=== PATIENT | male | born 1950 | race Two or more races ===

== ENCOUNTER 2018-08-27 15:47 | Inpatient (IN) | payer BC, MEDICARE ==
[2018-08-27] VITALS (20 sets, daily range): BP systolic 87–128; BP diastolic 48–89
[~2018-08-27] VITALS: Ht 170.2 cm; Wt 72.4 kg
[~2018-08-27 15:47] MED LIST: ASPI81CH43 GT; LEVO50TA7 OR; SIMV20TA90 OR
[2018-08-27] MEDS ORDERED: LIDOCAINE 2%HCL (LOCAL ANESTH.) INJ 20ML MDV ONE (15:57)
[2018-08-27] MEDS ORDERED: ANGIOMAX 250 MG VIAL IV ONE (17:24)
[2018-08-27] MEDS ORDERED: MIDAZOLAM HCL 1MG/1ML-2 ML VIAL ONE (17:24)
[2018-08-27] MEDS ORDERED: fentaNYL CITRATE 100 MCG/2 ML VL ONE (17:24)
[2018-08-27] MEDS ORDERED: SODIUM CHL 0.9% 0 ML ONE (17:25)
--- NOTE | 2018-08-27 19:15 | NUR ---
Initial Assessment Patient received from cardiac microbiology lab analyst. Pt already on ICU bed. Patient taken off soiled linens and placed on clean linens. pt is awake, alert, and oriented x4 with no s/s of distress. RR even and unlabored with equal rise and fall on 2L o2 via N/C. Lungs clear throughout. Denies chest pain. PIV to RFA SL, PIV to LFA running NS with no s/s of infiltration or phlebitis noted-noted good blood return. right groin incision dressing is CDI with no bleeding, bruising, or hematoma palpated. Site is soft. Neurovascular status intact with palpable distal pulses, capillary refill brisk, skin warm to touch. Patient educated about how to use the call light and encouraged to call when needing any assistance and patient verbalized understanding. patient educated about s/p heart cath restrictions including no bending of extremities, no crossing legs, no sitting up, or getting OOB and patient verbalized understanding. Bed placed in reverse trendelenberg position so HOB is elevated without bending legs. Call light, urinal, and side table are within reach. All VSS. Continue close monitoring.
[2018-08-27] MEDS ORDERED: SODIUM CHLORIDE 0.9% 1,000 ML IV SCH (19:21)
[2018-08-27] MEDS ORDERED: NITROGLYCERIN 0.4 MG SL TAB SL PRN (19:30)
--- NOTE | 2018-08-27 19:30 | NUR ---
Family visits Multiple family members visiting with patient. No concerns or complaints voiced from them at this time.
--- NOTE | 2018-08-27 19:45 | NUR ---
Dr. Woodall call informed that there was no magnesium level ordered and the patient has orders for two grams of mag IV and PO mag. Dr. Woodall verified that it is correct and to give the magnesium as ordered.
[2018-08-27] MEDS: MAGNESIUM SULFATE 1GM/100ML 100 ML IV SCH ×2 (19:54→20:57)
[2018-08-27] MEDS: HYDROcodone-ACET 5/325MG TAB PO PRN (20:05)
--- NOTE | 2018-08-27 20:05 | NUR ---
Pain Management patient requesting Hollywood. No drowsiness or respiratory depression. No chest pain. Hollywood administered per MD order. patient tolerated well with no s/s of coughing or aspiration.
[2018-08-27 20:14] LABS: Potassium 4.5 mmol/L (3.5-5.1)
[2018-08-27] MEDS ORDERED: PROPOFOL 100 ML IV ONE (20:15)
[2018-08-27 20:16] LABS: Magnesium 2.2 mg/dL (1.6-2.6)
[2018-08-27] MEDS: MAGNESIUM OXIDE 400 MG TAB PO SCH (22:00)
[2018-08-27] MEDS ORDERED: ATORVASTATIN 20 MG TAB PO SCH (22:00)
[2018-08-27] MEDS: SODIUM CHLOR 0.9% PF (SALINE LOCK) 10ML VIAL/SYR IV SCH (22:00)
--- NOTE | 2018-08-27 22:00 | NUR ---
Voiding Patient voided 500ml of clear/yellow urine into urinal without incident.
[2018-08-27] MEDS ORDERED: LEVO50TA7 PO (23:34)
[2018-08-27] MEDS ORDERED: ATO40T PO (23:34)
[2018-08-28] VITALS (41 sets, daily range): BP systolic 94–128; BP diastolic 50–71
--- NOTE | 2018-08-28 00:30 | NUR ---
Ongoing Assessment Patient pulled up in bed. Offered to turn but pt states he wants to remain in supine position at this time. Bed remains in reverse trendelenberg position and patient is maintaining catheter restrictions. No bleeding, bruising, or hematoma to cath site noted. Neurovascular status intact with palpable distal pulses, brisk capillary refill, and skin warm to touch. Denies pain to cath site and it is soft to touch. Patient provided with Jello and water and ate 100% and tolerated well. No C/O pain. States he is sleeping intermittently and is comfortable. No S/S of distress noted. All VSS, all alarms audible. Patient reminded to use call light to call RN if needing anything and patient verbalized understanding. PIV site remains intact and patient with no s/s of infiltration or phlebitis noted. Denies pain at IV insertion site. Continue close monitoring.
--- NOTE | 2018-08-28 03:00 | NUR ---
Ongoing Assessment When pt falls asleep Pt has periods of bradycardia but is asymptomatic with MAP >65, HR increases with any stimulation. Patient agreed to turn to right side without bending right leg and he did so independently. Bed remains in reverse Trendelenburg position and patient is maintaining catheter restrictions. No bleeding, bruising, or hematoma to cath site noted. Neurovascular status intact with palpable distal pulses, brisk capillary refill, and skin warm to touch. Denies pain to cath site and it is soft to touch. No C/O pain. States he is comfortable. No S/S of distress noted. All VSS, all alarms audible. Patient reminded to use call light to call RN if needing anything and patient verbalized understanding. PIV site remains intact and patient with no s/s of infiltration or phlebitis noted. Denies pain at IV insertion site. Continue close monitoring.
[2018-08-28 04:42] LABS: Potassium 4.1 mmol/L (3.5-5.1)
[2018-08-28 04:51] LABS: Albumin 3.3 g/dL (3.4-5.0); BUN/Creatinine Ratio 12.8; Bilirubin, Total 1.6 mg/dL (0.2-1.0); Magnesium 2.8 mg/dL (1.6-2.6); Total Protein 6.2 g/dL (6.4-8.2)
--- NOTE | 2018-08-28 05:00 | NUR ---
Ongoing Assessment Right groin dressing has scant amount of serosanguineous fluid covering approximately 1/4 of the gauze pad. However, there is no additional signs of bleeding, bruising, or hematoma. Pt denies pain at site and it is soft to touch and normal in size when compared to left leg. Denies any chest pain. Pt now saline locked after liter of NS was finished (per MD orders). Pt continues to rest comfortably with no complaints. Provided with more water and offered nourishment but pt refused at this time stating he is comfortable. Bed remains in reverse Trendelenburg position and patient is maintaining catheter restrictions. Neurovascular status remains intact and unchanged with palpable distal pulses, brisk capillary refill, and skin warm to touch. No S/S of distress noted. All VSS, all alarms audible. Patient reminded to use call light to call RN if needing anything and patient verbalized understanding. PIV site remains intact and patient with no s/s of infiltration or phlebitis noted. Denies pain at IV insertion site. Continue close monitoring.
--- NOTE | 2018-08-28 06:00 | NUR ---
Hygiene RN offered patient supplied to brush teeth and clean body. Patient refusing at this time stating "maybe later this morning". Will endorse to day shift RN.
[2018-08-28] MEDS: SODIUM CHLOR 0.9% PF (SALINE LOCK) 10ML VIAL/SYR IV SCH (06:01)
--- NOTE | 2018-08-28 06:30 | NUR ---
Voiding RN encouraged patient to void. Patient states he will go "a little later". No bladder distension or tenderness palpated.
[2018-08-28] MEDS ORDERED: LEVOTHYROXINE SODIUM 25 MCG TAB PO SCH (07:00)
--- NOTE | 2018-08-28 07:00 | NUR ---
Report given No changes or incidents to report. Patient remains resting with no s/s of pain or discomfort. Right groin incision is free of any bleeding, bruising, or hematoma. Neurovascular status intact with strong palpable distal pulses. Call light and side table are within reach. All VSS. Care endorsed to day shift RN to assume care.
--- NOTE | 2018-08-28 07:45 | NUR ---
ELIMINATION Patient was able to urinate 500ml of clear yellow urine. Urinal in reach.
[2018-08-28] MEDS: HYDROcodone-ACET 5/325MG TAB PO PRN (08:49)
--- NOTE | 2018-08-28 09:15 | NUR ---
FAMILY Family at bedside.
[2018-08-28] MEDS: MAGNESIUM OXIDE 400 MG TAB PO SCH (10:00)
[2018-08-28] MEDS ORDERED: ASPirin 81 mg TAB PO SCH (10:00)
--- NOTE | 2018-08-28 10:00 | NUR ---
AM MEDICATION AM magnesium tablet held for a level of 2.8.
[2018-08-28 11:50] LABS: Basophils # (auto) 0 uL; Basophils % (auto) 0.5 % (0.0-2.0); Eosinophils # (auto) 0 uL; Eosinophils % (auto) 0.5 % (0.0-7.0); Hematocrit 38.8 % (41.0-53.0); Hemoglobin 13.1 g/dL (13.5-17.5); Lymphocytes # (auto) 1.2 uL; Lymphocytes % (auto) 14.3 % (10.0-50.0); Mean Corpuscular Hemoglobin 29.7 pg (28.0-32.0); Mean Corpuscular Hgb Conc. 33.9 g/dL (32.0-36.0); Mean Corpuscular Volume 87.5 fL (80.0-100.0); Monocytes # (auto) 0.7 uL; Neutrophils # (auto) 6.7 uL; Neutrophils % (auto) 76.7 % (37.0-80.0); Platelet Count (auto) 162 10^3/uL (140-450); Red Blood Cells 4.43 10^6/uL (4.5-5.90); Red Cell Distribution Width 13.1 % (11.8-14.3); White Blood Cell 8.7 10^3/uL (4.4-10.8)
--- NOTE | 2018-08-28 12:55 | NUR ---
FAMILY/DIETARY Family came out and asked where lunch tray is. Informed them that lunch tray was not included in with the rest of the trays, but that this RN has called and was informed by dietary that tray is being worked on and will be here soon.
--- NOTE | 2018-08-28 13:00 | NUR ---
LUNCH/MD Lunch tray has arrived. Dr. Woodall at bedside updated on patient condition with new orders to discharge patient home, MD input orders into system.
--- NOTE | 2018-08-28 15:10 | NUR ---
DISCHARGE Patient was discharged per MD orders all belongs with patient. Educated patient regarding activity and diagnosis.
== END 2018-08-28 15:10 | disposition home or self-care (01) | DRG 287 ==
LOC: ICU WEST 19:23 → EDSTATUS 19:23 → EEVIPCON 19:23
PROVIDERS: ADMIT Internal Medicine Cardiovascular Disease; ATTEND Internal Medicine Cardiovascular Disease
PROC: 4A023N7 Measurement of Cardiac Sampling and Pressure, Left Heart, Percutaneous Approach (ICD-10-PCS; principal; 2018-08-28)
PROC: B2111ZZ Fluoroscopy of Multiple Coronary Arteries using Low Osmolar Contrast (ICD-10-PCS; 2018-08-28)
PROC: B2151ZZ Fluoroscopy of Left Heart using Low Osmolar Contrast (ICD-10-PCS; 2018-08-28)
PROC: B41F1ZZ Fluoroscopy of Right Lower Extremity Arteries using Low Osmolar Contrast (ICD-10-PCS; 2018-08-28)
DX: R07.89 Other chest pain (principal); I24.9 Acute ischemic heart disease, unspecified; E03.9 Hypothyroidism, unspecified; I10 Essential (primary) hypertension; E78.5 Hyperlipidemia, unspecified; Z79.899 Other long term (current) drug therapy
CPT/HCPCS: 36415; 80053; 82565; 83735; 84132; 84484; 85025; 87081; 99152; A6257; G0378; J2250; J2704

== ENCOUNTER → 2018-09-22 | Outpatient (CLI) | payer BC, MEDICARE ==
[~2018-09-22] MED LIST changes: +ATO40T PO; +LEVO50TA7 PO
== END | disposition home or self-care (01) ==
LOC: Rad HDHVI 08:15
PROVIDERS: ATTEND Internal Medicine Cardiovascular Disease
DX: K57.10 Diverticulosis of small intestine without perforation or abscess without bleeding (principal); K40.90 Unilateral inguinal hernia, without obstruction or gangrene, not specified as recurrent; K57.30 Diverticulosis of large intestine without perforation or abscess without bleeding; I70.0 Atherosclerosis of aorta
CPT/HCPCS: 74176

== ENCOUNTER → 2023-04-24 | Outpatient (CLI) | payer BC, MEDICARE ==
[~2023-04-24] MED LIST changes: +IOHEXOL 300 MG/ML 100ML BOTTLE IJ ONE; +SIMV-270 OR; -SIMV20TA90 OR
== END | disposition home or self-care (01) ==
LOC: EEVIPCON 12:10 → XYW 12:10
DX: J98.59 Other diseases of mediastinum, not elsewhere classified (principal); M51.34 Other intervertebral disc degeneration, thoracic region; E27.8 Other specified disorders of adrenal gland; R22.2 Localized swelling, mass and lump, trunk
CPT/HCPCS: 71260; Q9967